=== PATIENT | male | born 1965 | race Caucasian/White ===

== ENCOUNTER 2024-06-18 20:05 | Emergency (ER) | payer OTHER ==
[2024-06-18 20:40] VITALS: TEMP 98.7; BMI 32.8
[2024-06-18 21:58] VITALS: BP 131/77; PULSE 68; RESP 18
[2024-06-18] MEDS ORDERED: CEFUROXIME AXETIL 500 MG TABLET ONE (22:05)
[2024-06-18] MEDS: CEFUROXIME AXETIL 500 MG TABLET PO ONE (22:10)
== END 2024-06-18 22:17 | disposition home or self-care (01) ==
LOC: FER 20:05
DX: S02.85XA Fracture of orbit, unspecified, initial encounter for closed fracture (principal); W11.XXXA Fall on and from ladder, initial encounter
CPT/HCPCS: 70450-TC; 70486-TC; 72125-TC; 99284-25